=== PATIENT | male | born 1945 | race Caucasian/White ===

== ENCOUNTER 2019-05-08 14:19 | Outpatient (CLI) | payer MEDICARE, OTHER, SELFPAY ==
[2019-05-08 15:02] LABS: Blood Urea Nitrogen 20 mg/dL (9-20); Calcium 9.5 mg/dL (8.4-10.2); Carbon Dioxide 27 mmol/L (22-30); Chloride 103 mmol/L (98-107); Estimated Glomerular Filt Rate > 60; Glucose 95 mg/dL (75-110); Potassium 4.5 mmol/L (3.4-5.0); Sodium 137 mmol/L (137-145)
== END 2019-05-08 14:20 | disposition home or self-care (01) ==
PROVIDERS: Visit Provider Internal Medicine Cardiovascular Disease
DX: I10 Essential (primary) hypertension (principal)
CPT/HCPCS: 36415; 80048

== ENCOUNTER 2020-03-20 15:37 | Outpatient (CLI) | payer MEDICARE, OTHER, SELFPAY ==
--- NOTE | ~2020-03-20 | US_ITS ---
EXAMINATION: US carotid duplex BI DATE: 03/20/2020 16:23 INDICATION: Carotid bruit TECHNIQUE: Grayscale, color Doppler, and pulsed Doppler images of the cervical carotid arteries were obtained. The degree of vessel stenosis is placed in one of the following categories: normal, <50%, 5 0-69%, >=70% but less than near-occlusion, near-occlusion, or total occlusion. Note that percent sten osis relative to normal distal artery lumen diameter is indirectly measured from velocity measurement s as described by Jm, et al. Radiology 2003; [id number]. Notes: Normal: Peak systolic velocity <125 centimeters/sec and no plaque <50%. Peak systolic velocity <125 ( EDV <40; ICA/CCA PSV ratio <2.0; used these factors only a tandem lesions or low cardiac output or co ntralateral disease) 50-69 %: PSV 125-230 (EDV 40-100; ratio 2-4) >= 70% but less than near occlusion: PSV greater than 230 (EDV > 100; ratio> 4.0) Near Occlusion: PSV that is variable; markedly narrowed lumen Occlusion: Absent flow on color/spectral Doppler and no lumen on hernandez scale. COMPARISON: None. FINDINGS: RIGHT: The right common carotid artery (CCA) peak systolic velocity (PSV) is 95 cm/s. The right internal car otid artery (ICA) PSV is 195 cm/s. The right ICA end-diastolic velocity (EDV) is 51 cm/s. The right I CA/CCA PSV ratio is 2.1. The external carotid artery (ECA) PSV is 102 cm/s. There is antegrade flow i n the right vertebral artery. LEFT: The left CCA PSV is 73 cm/s. The left ICA PSV is 189 cm/s. The left ICA EDV is 47 cm/s. The left ICA/ CCA PSV ratio is 2.6. The ECA PSV is 108 cm/s. There is antegrade flow in the left vertebral artery. IMPRESSION: 1. 50-69% stenosis in the right internal carotid artery by sonographic criteria. 2. 50-69% stenosis in the left internal carotid artery by sonographic criteria. Reviewed, dictated and finalized at location A. CHANGER IMPRESSION: 1. 50-69% stenosis in the right internal carotid artery by sonographic criteria . 2. 50-69% stenosis in the left internal carotid artery by sonographic criteria.
== END 2020-03-20 15:38 | disposition home or self-care (01) ==
PROVIDERS: Visit Provider Internal Medicine Cardiovascular Disease
DX: R09.89 Other specified symptoms and signs involving the circulatory and respiratory systems (principal); I65.23 Occlusion and stenosis of bilateral carotid arteries
CPT/HCPCS: 93880

== ENCOUNTER 2020-06-05 15:25 | Outpatient (CLI) | payer MEDICARE, OTHER, SELFPAY ==
[2020-06-05 17:18] LABS: IFOB Positive Control Positive; Immunochemical Fecal Occult Bl Negative (N)
== END 2020-06-05 15:26 | disposition home or self-care (01) ==
LOC: ANHLAB 15:29
PROVIDERS: Visit Provider Internal Medicine Gastroenterology
DX: R19.7 Diarrhea, unspecified (principal); R10.84 Generalized abdominal pain
CPT/HCPCS: 36415; 82274; 87045; 87046; 87177; 87209; 87427; 89055

== ENCOUNTER 2020-09-30 16:33 | Emergency (ER) | payer MEDICARE, OTHER, SELFPAY ==
[2020-09-30 17:01] VITALS: BP 169/93; PULSE 76; RESP 16; TEMP 37.1; O2SAT 98
[2020-09-30 17:13] LABS: Basophils Percent Auto 0.7 % (0.2-1.2); Eosinophils Absolute Auto 0.4 K/mm3 (0-0.3); Eosinophils Percent Auto 6.6 % (0-4.4); Hematocrit 40.9 % (42.0-52.0); Hemoglobin 14.1 g/dL (14.0-18.0); Immature Granulocyte Absolute 0.01 K/mm3 (0.00-0.031); Immature Granulocyte Percent A 0.2 % (0-0.5); Lymphocytes Percent Auto 33.1 % (18.3-44.2); Mean Corpuscular HGB Conc 34.5 g/dl (32-36); Mean Corpuscular Hemoglobin 32.7 pg (26-34); Mean Corpuscular Volume 94.9 fl (80-100); Mean Platelet Volume 9.2 fl (7.4-10.4); Monocytes Absolute Auto 0.5 K/mm3 (0.1-0.6); Monocytes Percent Auto 9.6 % (2.6-8.5); Neutrophils Absolute Auto 2.7 K/mm3 (1.3-6.7); Neutrophils Percent Auto 49.8 % (45.5-73.1); Platelet Count Result 236 k/mm3 (150-375); Red Blood Count 4.31 M/mm3 (4.6-6.20); Red Cell Distribution Width 12.9 % (11.5-14.5); White Blood Count 5.4 K/mm3 (4.5-10.0)
[2020-09-30 17:18] VITALS: BP 151/72; PULSE 65; RESP 16; O2SAT 96
--- NOTE | 2020-09-30 17:36 | ED.GENADULT ---
HPI - General Adult General Chief complaint: Recheck/Abnormal Lab/Rx <Luis Alfredo Garza PA-C - Last Filed: 09/30/20 18:43> Stated complaint: High blood pressure <Luis Alfredo Garza PA-C - Last Filed: 09/30/20 18:43> Time Seen by Provider: 09/30/20 16:38 <Luis Alfredo Garza PA-C - Last Filed: 09/30/20 18:43> Source: patient, family and RN notes reviewed <Luis Alfredo Garza PA-C - Last Filed: 09/30/20 18:43> Mode of arrival: ambulatory <Luis Alfredo Garza PA-C - Last Filed: 09/30/20 18:43> Limitations: no limitations <Luis Alfredo Garza PA-C - Last Filed: 09/30/20 18:43> History of Present Illness HPI narrative: Patient is 75-year-old male who presents for evaluation of hypertension had elevated readings at home today patient is asymptomatic has no complaints has history of hypertension has been compliant with his medications and again is asymptomatic <Luis Alfredo Garza PA-C - Last Filed: 09/30/20 18:43> Related Data Allergies/adverse reactions: Allergies Allergy/AdvReac Type Severity Reaction Status Date / Time No Known Allergies Allergy Unverified 09/03/18 09:56 <Luis Alfredo Garza PA-C - Last Filed: 09/30/20 18:43> Review of Systems Review of Systems: All systems reviewed & are unremarkable except as noted in HPI and below <Luis Alfredo Garza PA-C - Last Filed: 09/30/20 18:43> PMFSH Past Medical History Medical History: Medical History Hypertension <Luis Alfredo Garza PA-C - Last Filed: 09/30/20 18:43> Social History Social History: Social History (Updated 09/30/20 @ 17:37 by Luis Alfredo Garza PA-C) Smoking status: Never smoker <Luis Alfredo Garza PA-C - Last Filed: 09/30/20 18:43> Exam Narrative: Exam Narrative: GENERAL: Well-appearing, well-nourished, and in no acute distress. HEAD: Normocephalic, atraumatic. EYES: PERRLA and EOMI. ENT: Nares clear, no rhinorrhea or epistaxis. Mucous membranes moist. CHEST: Clear to auscultation. No respiratory distress. No wheezes rales or rhonchi HEART: Regular rate and rhythm. No murmur heard. EXTREMITIES: Normal range of motion. No edema. SKIN: Warm, dry, no rash. NEURO: No focal deficits. Alert and oriented x3. PSYCH: Normal mood and affect. <Luis Alfredo Garza PA-C - Last Filed: 09/30/20 18:43> Course Course Emergency Course: Patient presented with asymptomatic hypertension slightly elevated blood pressures again asymptomatic will be discharged with outpatient follow-up advised to follow with primary care is nontoxic-appearing no distress and felt appropriate for outpatient reevaluation no high risk changes in the blood work <Luis Alfredo Garza PA-C - Last Filed: 09/30/20 18:43> Vital Signs Vital signs: Vital Signs Temperature 98.7 F 09/30/20 17:01 Pulse Rate 76 09/30/20 17:01 Respiratory Rate 16 09/30/20 17:01 Blood Pressure 169/93 H 09/30/20 17:01 Pulse Oximetry 98 09/30/20 17:01 Temperature 98.7 F 09/30/20 17:01 Pulse Rate 65 09/30/20 18:52 Respiratory Rate 12 09/30/20 18:52 Blood Pressure 170/87 H 09/30/20 18:52 Pulse Oximetry 99 09/30/20 18:52 <Luis Alfredo Garza PA-C - Last Filed: 09/30/20 18:43> Vital Signs Temperature 98.7 F 09/30/20 17:01 Pulse Rate 76 09/30/20 17:01 Respiratory Rate 16 09/30/20 17:01 Blood Pressure 169/93 H 09/30/20 17:01 Pulse Oximetry 98 09/30/20 17:01 Temperature 98.7 F 09/30/20 17:01 Pulse Rate 65 09/30/20 18:52 Respiratory Rate 12 09/30/20 18:52 Blood Pressure 170/87 H 09/30/20 18:52 Pulse Oximetry 99 09/30/20 18:52 <Sirena Nuno MD - Last Filed: 09/30/20 20:20> Medical Decision Making MDM Narrative Medical decision making narrative: Patient presented noting hypertension on arrival is in the room in no distress resting comfortably is compliant with his medications and felt appropriate for outpatient reeval
[2020-09-30 18:02] LABS: Alanine Aminotransferase 29 U/L (4-50); Albumin Level 4.2 g/dL (3.5-5.1); Alkaline Phosphatase 55 U/L (38-126); Anion Gap 7 mmol/L (8-16); Aspartate Amino Transferase 35 U/L (17-59); Bilirubin,Total 0.5 mg/dL (0.2-1.3); Blood Urea Nitrogen 17 mg/dL (9-20); Calcium 9.5 mg/dL (8.4-10.2); Carbon Dioxide 25 mmol/L (22-30); Chloride 109 mmol/L (98-107); Estimated CRCL calculation 57 ml/min; Estimated Glomerular Filt Rate > 60; Glucose 101 mg/dL (75-110); Potassium 3.7 mmol/L (3.4-5.0); Sodium 141 mmol/L (137-145)
[2020-09-30 18:14] VITALS: BP 169/79; PULSE 69; RESP 13; O2SAT 98
[2020-09-30 18:52] VITALS: BP 170/87; PULSE 65; RESP 12; O2SAT 99
== END 2020-09-30 18:54 | disposition home or self-care (01) ==
PROVIDERS: Emergency Medicine Emergency Medical Services; Emergency Provider General Practice; PCP Physician Assistant
DX: I10 Essential (primary) hypertension (principal)
CPT/HCPCS: 36415; 80053; 85025; 99283

== ENCOUNTER 2021-04-23 15:27 | Outpatient (CLI) | payer MEDICARE, OTHER, SELFPAY ==
--- NOTE | ~2021-04-23 | MR_ITS ---
EXAMINATION: MR hip LT wo con DATE: 04/23/2021 17:22 INDICATION: Chronic left hip pain TECHNIQUE: Magnetic resonance imaging (MRI) of the left hip was performed without intravenous contra st. Sequences included full-field axial PD-weighted FS FSE and T1-weighted FSE, coronal of the pelvis with PD-weighted FS FSE, small field of view of the left hip with axial PD-weighted FS FSE, sagitta l PD-weighted FS FSE and coronal PD weighted FS FSE. Additional radial T1-weighted FGR oriented ortho gonal to the acetabular rim were obtained for evaluation of the labrum. COMPARISON: None FINDINGS: Bones/labrum/cartilage: Alignment is normal. There is somewhat serpiginous low signal intensity boundary to a large region of likely osteonecrosis underlying the majority of the articular cortex of the left femoral head. There is loss of T1 fat signal underlying the cephalad aspect of the femoral head which appears slightly f lattened. Along the margins of this region of decreased T1 signal are multiple prominent subarticular cysts. There is partial thickness cartilage loss with mild to moderate nonuniform joint space narrow ing at the posterior and anterosuperior aspect of the joint space. Small marginal osteophytes about t he femoral head. Linear tear at the superolateral left acetabular labrum with more irregular degenera tive tearing with thickened macerated appearance of the posterior superior to posterior left acetabul ar labrum. Remaining marrow signal with no fracture or pathologic marrow replacing process. Moderate lower lumbar facet osteoarthritis. Fluid: Symmetric physiologic amount of fluid within both hip joints. Soft tissues: Normal and symmetric muscle bulk and signal in the pelvis and visualized proximal thighs. The iliopso as, gluteal and proximal hamstring tendons are normal. Limited evaluation of visceral organs of the p melissa is unremarkable. No pathologically enlarged pelvic/inguinal lymphadenopathy. IMPRESSION: 1. 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 2. Moderate secondary left hip osteoarthritis with prominent subarticular cystic change about the fem oral head. 3. Tearing of the left acetabular labrum. Reviewed, dictated and finalized at location A. IX ENGINEER IMPRESSION: 1. Extensive osteonecrosis at the left femoral head with subtle flattening of p ortion of the apex of the femoral head consistent with secondary collapse. 2. Moderate secondary left hip osteoarthritis with prominent subarticular cysti c change about the femoral head. 3. Tearing of the left acetabular labrum.
== END 2021-04-23 15:28 | disposition home or self-care (01) ==
PROVIDERS: PCP Physician Assistant
DX: M25.552 Pain in left hip (principal); G89.29 Other chronic pain; M87.052 Idiopathic aseptic necrosis of left femur; M16.12 Unilateral primary osteoarthritis, left hip; S73.192A Other sprain of left hip, initial encounter
CPT/HCPCS: 73721

== ENCOUNTER 2021-10-09 14:24 | Outpatient (CLI) | payer MEDICARE, OTHER, SELFPAY ==
--- NOTE | ~2021-10-09 | US_ITS ---
EXAMINATION: US carotid duplex BI DATE: 10/09/2021 15:00 INDICATION: Carotid stenosis TECHNIQUE: Grayscale, color Doppler, and pulsed Doppler images of the cervical carotid arteries were obtained. The degree of vessel stenosis is placed in one of the following categories: normal, <50%, 5 0-69%, >=70% but less than near-occlusion, near-occlusion, or total occlusion. Note that percent sten osis relative to normal distal artery lumen diameter is indirectly measured from velocity measurement s as described by Jm, et al. Radiology 2003; [id number]. Notes: Normal: Peak systolic velocity <125 centimeters/sec and no plaque <50%. Peak systolic velocity <125 ( EDV <40; ICA/CCA PSV ratio <2.0; used these factors only a tandem lesions or low cardiac output or co ntralateral disease) 50-69 %: PSV 125-230 (EDV 40-100; ratio 2-4) >= 70% but less than near occlusion: PSV greater than 230 (EDV > 100; ratio> 4.0) Near Occlusion: PSV that is variable; markedly narrowed lumen Occlusion: Absent flow on color/spectral Doppler and no lumen on hernandez scale. COMPARISON: Ultrasound dated 03/20/2020. FINDINGS: RIGHT: The right common carotid artery (CCA) peak systolic velocity (PSV) is 105 cm/s. The right internal ca rotid artery (ICA) PSV is 280 cm/s. The right ICA end-diastolic velocity (EDV) is 81 cm/s. The right ICA/CCA PSV ratio is 2.7. The external carotid artery (ECA) PSV is 129 cm/s. There is antegrade flow in the right vertebral artery. LEFT: The left CCA PSV is 64 cm/s. The left ICA PSV is 312 cm/s. The left ICA EDV is 93 cm/s. The left ICA/ CCA PSV ratio is 4.9. The ECA PSV is 137 cm/s. There is antegrade flow in the left vertebral artery. IMPRESSION: 1. Greater than or equal to 70% stenosis in the right internal carotid artery by sonographic criteria . 2. Greater than or equal to 70% stenosis in the left internal carotid artery by sonographic criteria. Reviewed, dictated and finalized at location A. IMPRESSION: 1. Greater than or equal to 70% stenosis in the right internal carotid artery b y sonographic criteria. 2. Greater than or equal to 70% stenosis in the left internal carotid artery by sonographic criteria.
== END 2021-10-09 14:25 | disposition home or self-care (01) ==
PROVIDERS: PCP Physician Assistant; Visit Provider Internal Medicine Cardiovascular Disease
DX: I65.23 Occlusion and stenosis of bilateral carotid arteries (principal)
CPT/HCPCS: 93880

== ENCOUNTER 2021-10-27 20:16 | Emergency (ER) | payer MEDICARE, OTHER, SELFPAY ==
[2021-10-27] VITALS (12 sets, daily range): BP systolic 168–200; BP diastolic 84–145; PULSE 60–73; RESP 18; TEMP 36.3; O2SAT 92–100
--- NOTE | ~2021-10-27 | CT_ITS ---
EXAMINATION: CT brain wo con DATE: 10/27/2021 22:18 INDICATION: acute headache, hypertension . TECHNIQUE: Computed tomography (CT) of the head was performed without intravenous contrast. The mA wa s adjusted according to patient size. Iterative reconstruction technique was employed. The dose-lengt h product was 605.33 mGy-cm. COMPARISON: 10/03/2017. FINDINGS: No acute intracranial hemorrhage or extra-axial fluid collection. No hydrocephalus, mass, or herniation. No acute ischemic infarct. Unremarkable dural venous sinus attenuation. No acute osseous abnormality. Retention cyst or polyp in the left frontal sinus extending into the left anterior ethmoid air cells. Aerated secretion/debris in the posterior left ethmoid air cells. Prior sinus surgery. Bilateral max illary sinus wall thickening. The remaining aerated spaces are clear. Atherosclerotic intracranial calcification. Bilateral lens replacements. IMPRESSION: No acute intracranial process. Reviewed, dictated and finalized at location K.
--- NOTE | 2021-10-27 21:22 | ECG_ITS ---
Measurements Intervals [place] Rate: 62 P: -8 [place]: 169 QRS: -37 QRSD: 134 T: 9 QT: 433 QTc: 441 Interpretive Statements SINUS RHYTHM WITH SINUS ARRHYTHMIA LEFT AXIS DEVIATION RIGHT BUNDLE BRANCH BLOCK HIGH LATERAL INFARCT, AGE INDETERMINATE BASELINE ARTIFACT- I, II, III, AVR ABNORMAL ECG Electronically Signed On 10-28-2021 6:42:49 CDT by Rocco Oliveira D.O.
[2021-10-27] MEDS: NAPROXEN 500 MG TABLET PO (21:41)
[2021-10-27 21:44] LABS: Basophils Percent Auto 0.6 % (0.2-1.2); Eosinophils Absolute Auto 0.4 K/mm3 (0-0.3); Eosinophils Percent Auto 6.7 % (0-4.4); Hematocrit 43.4 % (42.0-52.0); Immature Granulocyte Absolute 0.02 K/mm3 (0.00-0.031); Immature Granulocyte Percent A 0.3 % (0-0.5); Lymphocytes Absolute Auto 1.67 K/mm3 (0.9-3.2); Lymphocytes Percent Auto 25.4 % (18.3-44.2); Mean Corpuscular HGB Conc 34.6 g/dl (32-36); Mean Corpuscular Hemoglobin 32.7 pg (26-34); Mean Corpuscular Volume 94.6 fl (80-100); Mean Platelet Volume 9.1 fl (7.4-10.4); Monocytes Absolute Auto 0.6 K/mm3 (0.1-0.6); Monocytes Percent Auto 8.7 % (2.6-8.5); Neutrophils Absolute Auto 3.8 K/mm3 (1.3-6.7); Neutrophils Percent Auto 58.3 % (45.5-73.1); Platelet Count Result 232 k/mm3 (150-375); Red Blood Count 4.59 M/mm3 (4.6-6.20); Red Cell Distribution Width 12.7 % (11.5-14.5); White Blood Count 6.6 K/mm3 (4.5-10.0)
[2021-10-27 21:55] LABS: Alanine Aminotransferase 29 U/L (6-50); Albumin Level 4.7 g/dL (3.5-5.1); Alkaline Phosphatase 60 U/L (38-126); Anion Gap 10 mmol/L (8-16); Aspartate Amino Transferase 31 U/L (17-59); Bilirubin,Total 0.4 mg/dL (0.2-1.3); Blood Urea Nitrogen 26 mg/dL (9-20); Calcium 9.6 mg/dL (8.4-10.2); Carbon Dioxide 26 mmol/L (22-30); Chloride 105 mmol/L (98-107); Estimated CRCL calculation 56 ml/min; Estimated Glomerular Filt Rate > 60; Glucose 124 mg/dL (65-110); Potassium 4.4 mmol/L (3.4-5.0); Sodium 141 mmol/L (137-145)
[2021-10-27 22:22] LABS: Appearance Urine Clear (Clear); Bilirubin Urine Negative (Negative); Blood Urine Negative (Negative); Color Urine Yellow (Yellow); Glucose Urine UA Negative (Negative); Ketones Urine Negative (Negative); Leukocyte Esterase Ur Negative LEU/UL (Negative); Nitrate Urine Negative (Negative); Protein Urine Negative (Negative); Specific Grav Ur 1.015 (1.001-1.035); Urobilinogen Urine 0.2 mg/dL (<2.0)
[2021-10-27 22:23] LABS: Add Urine Microscopic? NO
--- NOTE | 2021-10-27 23:56 | ED.RECABL ---
HPI - Recheck/Abnormal Lab/Rx General Chief Complaint: Recheck/Abnormal Lab/Rx Stated Complaint: high bp, headache Time Seen by Provider: 10/27/21 20:45 Source: patient, RN notes reviewed and old records reviewed Mode of arrival: ambulatory Limitations: no limitations History of Present Illness HPI narrative: This is a 76 year old male who presents for evaluation of elevated blood pressure. Patient states he has noticed that his blood pressure has been increasingly elevated over the past 3 days. Today his blood pressure was 200s/100s. He has history of hypertension and he has been taking his medication as prescribed. He takes lisinopril 10 mg BID and metoprolol 25 mg BID. He denies chest pain, dizziness or shortness of breath. He reports his blood pressure normally controlled at 130s /70s. Over the past 4 days he has been having worsening left hip pain . He had left hip replacement in July and he states that he had xray already to assess his pain. He denies any fall. He has appointment with his orthopedic surgeon . He states his thought his blood pressure was elevated due to pain. Patient also reports frontal headache that has been present since this morning. He denies blurred vision, nausea or vomiting. Related Data Home Medications Medication Instructions Recorded Confirmed aspirin 81 mg tablet 81 mg PO 1XD 10/27/21 10/27/21 isosorbide mononitrate 30 mg 30 mg PO 1XD 10/27/21 10/27/21 tablet,extended release 24 hr levothyroxine 50 mcg tablet 50 mcg 1XD 10/27/21 10/27/21 lisinopril 10 mg tablet 10 mg PO BID 10/27/21 10/27/21 mesalamine 400 mg capsule,delayed 400 mg PO 3XD 10/27/21 10/27/21 release metoprolol tartrate 25 mg tablet 25 mg 2XD 10/27/21 10/27/21 nitroglycerin 0.4 mg sublingual 0.4 mg PRN Chest Pain 10/27/21 tablet (Nitrostat) pantoprazole 40 mg tablet,delayed 40 mg PO 1XD 10/27/21 10/27/21 release rosuvastatin 10 mg tablet 10 mg 1XD 10/27/21 10/27/21 Allergies Allergy/AdvReac Type Severity Reaction Status Date / Time latex Allergy Itching Verified 10/27/21 20:42 Review of Systems Review of Systems: All systems reviewed & are unremarkable except as noted in HPI and below Eyes: Eyes: Denies change in vision Cardiovascular: Cardiovascular: Denies chest pain and Denies radiating jaw, neck or arm pain Respiratory: Respiratory: Denies chest congestion Gastrointestinal: Gastrointestinal: Denies nausea and Denies vomiting Neurologic: Denies dizziness, Denies syncope and Reports headache(s) PMFSH Past Medical History Medical History (Updated 10/28/21 @ 00:19 by Sirena Nuno MD) Hyperlipidemia Hypertension Hypothyroidism Surgical History Surgical History (Updated 10/28/21 @ 00:20 by Sirena Nuno MD) History of left hip replacement Social History Social History (Updated 09/30/20 @ 17:37 by Luis Alfredo Garza, PAChristiane) Smoking status: Never smoker Exam Const: General: healthy appearing, no acute distress and alert Nutritional Appearance: well nourished Orientation/consciousness: patient oriented x3 HENMT: Head: normal to inspection Face and sinus: normal facial exam Eyes: Pupils: Equal, round and reactive pupils present EOM: EOMs intact bilaterally Chest: Chest palpation & inspection: normal inspection of the chest Resp: Effort & Inspection: normal respiratory effort Auscultation: clear to auscultation bilaterally Cardio: Rate: regular rate Rhythm: regular rhythm Heart sounds: no murmurs GI: GI Palp: Yes Soft to palpation, No Tenderness to palpation present (GI) and No Guarding due to palpation present (GI) Auscultation: normal bowel sounds Skin: General skin exam: normal color Rashes: no rashes Wounds: no wounds Neuro: General: patient oriented x3, moves all extremities and CN's II-XI intact bilaterally Psych: Mental Status: mental status grossly normal Affect: normal affect Attitude: cooperative Course Reevaluation(s)
[2021-10-28 00:32] VITALS: BP 160/79; PULSE 72; RESP 18; O2SAT 98
== END 2021-10-28 00:34 | disposition home or self-care (01) ==
PROVIDERS: Emergency Provider General Practice; PCP Physician Assistant
DX: I10 Essential (primary) hypertension (principal); R51.9 Headache, unspecified; E03.9 Hypothyroidism, unspecified; E78.5 Hyperlipidemia, unspecified; Z79.82 Long term (current) use of aspirin; Z96.642 Presence of left artificial hip joint; I45.10 Unspecified right bundle-branch block; R94.31 Abnormal electrocardiogram [ECG] [EKG]
CPT/HCPCS: 36415; 70450; 80053; 81003; 85025; 93005; 99284; A9270

== ENCOUNTER → 2021-12-15 13:36 | Outpatient (CLI) | payer MEDICARE, OTHER, SELFPAY ==
--- NOTE | ~2021-12-15 | MR_ITS ---
EXAMINATION: MR lumbar spine wo con DATE: 12/15/2021 14:10 INDICATION: Lumbar radiculopathy. TECHNIQUE: Magnetic resonance imaging (MRI) of the lumbar spine was performed without intravenous con trast. Sequences included sagittal T2-weighted FSE, sagittal T2-weighted FS FSE, sagittal T1-weighted FSE, and axial T2-weighted FSE. COMPARISON: None FINDINGS: There is 4 degrees levocurvature of lumbar spine. Vertebral body heights and intervertebral disc heights are normal. The distal spinal cord signal intensity is normal. The conus medullaris is at L2. The following disc levels are specifically discussed: L1-L2: The disc does not extend beyond the endplate margin. There is mild bilateral facet joint osteo arthritis. There is no neural foraminal stenosis. There is no central canal stenosis. L2-L3: The disc does not extend beyond the endplate margin. There is severe right and mild left facet joint osteoarthritis. There is no neural foraminal stenosis. There is no central canal stenosis. L3-L4: The disc is bulging. There is severe bilateral facet joint osteoarthritis. There is mild bilat eral neural foraminal stenosis. There is no central canal stenosis. L4-L5: The disc is bulging. There is severe bilateral facet joint osteoarthritis. There is mild bilat eral neural foraminal stenosis. There is no central canal stenosis. L5-S1: The disc does not extend beyond the endplate margin. There is severe bilateral facet joint ost eoarthritis. There is mild left neural foraminal stenosis. There is no central canal stenosis. IMPRESSION: 1. Mild lumbar spondylosis. Reviewed, dictated and finalized at location A. IMPRESSION: 1. Mild lumbar spondylosis.
== END ==
PROVIDERS: PCP Physician Assistant; Visit Provider Physician Assistant
DX: M47.26 Other spondylosis with radiculopathy, lumbar region (principal)
CPT/HCPCS: 72148

== ENCOUNTER 2022-10-31 23:13 | Inpatient (IN) | payer MEDICARE, OTHER, SELFPAY ==
--- NOTE | ~2022-10-31 | XR_ITS ---
AP view of the pelvis and AP and lateral views of the left hip Clinical history: Pain Findings: No acute fracture or dislocation is seen. Left hip arthroplasties in place. No hardware com plication is evident. Soft tissues are unremarkable. Impression: No acute abnormality seen. Left hip arthroplasty in place. Reviewed, dictated and finalized at location . Impression: No acute abnormality seen. Left hip arthroplasty in place.
--- NOTE | ~2022-10-31 | CT_ITS ---
Non-contrast Head CT History: Syncope COMPARISON: 10/27/2021 Technique: Axial non-contrast imaging of the brain was performed. Dose reduction technique was used on this scan by utilizing automated exposure control and iterative reconstruction technique. The dose -length product (DLP) was 681.00 mGy-cm. Findings: There is no evidence of intracranial hemorrhage, mass lesion, or acute infarct. Brain par enchyma appears normal. The ventricles and subarachnoid spaces are normal in size. The calvarium ap pears normal. The visualized paranasal sinuses and mastoid air cells are clear. Impression: No significant abnormality seen. Reviewed, dictated and finalized at location . Impression: No significant abnormality seen.
--- NOTE | ~2022-10-31 | CT_ITS ---
CT ANGIOGRAM NECK AND HEAD History: Status post fall, syncope, carotid stenosis. Technique: Serial spiral axial images through the head and neck were obtained during arterial phase I V injection of 100 cc of Omnipaque 350. 3-D postprocessing and MIP images were then reconstructed on the remote workstation. Dose reduction technique was used on this scan by utilizing automated exposur e control and iterative reconstruction technique. The dose-length product (DLP) was 1222.66 mGy-cm. CTA neck findings: Bilateral vertebral arteries are patent. Bilateral common carotid, internal carot id, and external carotid arteries are patent. There is soft plaque or mural thrombus at the origin of the left internal carotid artery, without stenosis. There is low-grade, possibly 30 % stenosis at th e proximal right internal carotid artery The proximal right internal carotid artery demonstrates 30% stenosis relative to the normal distal artery lumen diameter. The proximal left internal carotid gagandeep ry demonstrates 0% stenosis relative to the normal distal artery lumen diameter. 4 mm right upper lobe pulmonary nodule noted. CTA head findings: Distal vertebral arteries, basilar artery, and posterior cerebral arteries are pat ent. Distal internal carotid arteries, middle cerebral arteries, and anterior cerebral arteries are p atent. No large vessel occlusion. No stenosis or aneurysm. Impression: Low-grade, 30% stenosis at the proximal right internal carotid artery. No other significant vascular abnormality. 4 mm right upper lobe pulmonary nodule. According to Fleischner Society criteria, no further follow-u p required for a low-risk patient. For a high-risk patient, consider 12 month follow-up CT. Reviewed, dictated and finalized at location . Impression: Low-grade, 30% stenosis at the proximal right internal carotid artery. No other significant vascular abnormality. 4 mm right upper lobe pulmonary nodule. According to Fleischner Society criteri a, no further follow-up required for a low-risk patient. For a high-risk patien t, consider 12 month follow-up CT.
--- NOTE | ~2022-10-31 | XR_ITS ---
Right Shoulder Technique: AP and scapular Y views were obtained. Clinical History: Pain Findings: No fracture or dislocation is seen. Osseous alignment is anatomic. The glenohumeral and acr omioclavicular joint spaces are preserved. Soft tissues are unremarkable. Impression: Unremarkable right shoulder radiographs. Reviewed, dictated and finalized at [facility]. Impression: Unremarkable right shoulder radiographs.
--- NOTE | ~2022-10-31 | CT_ITS ---
Noncontrast CT scan of the cervical spine Technique: Multiple contiguous axial [address] images of the cervical spine were obtained and rec onstructed in 2D sagittal and coronal planes on the acquisition scanner. Dose reduction technique was used on this scan by utilizing automated exposure control, adjustment of the mA and/or kV according to patient size. The dose-length product (DLP) was 498.74 mGy-cm. Clinical History: Pain Findings: No fractures or dislocations. Intervertebral disc spaces are relatively well preserved thr oughout the cervical spine. There is mild facet arthropathy bilaterally at C2-C3. There is left neura l foraminal narrowing at C3-C4 with left facet arthropathy. There is probable bilateral neural forami nal narrowing at C4-C5, with bilateral facet arthropathy, left worse than right. There is probable bi lateral neural foraminal narrowing, right worse than left, at C5-C6, related to bilateral facet arthr opathy. No prevertebral soft tissue swelling. Impression: No fracture or subluxation of the cervical spine. Mild degenerative change, as above. Reviewed, dictated and finalized at [facility]. Impression: No fracture or subluxation of the cervical spine. Mild degenerative change, as above.
--- NOTE | ~2022-10-31 | XR_ITS ---
Clinical Indication: Syncope AP and lateral views of the chest: Comparison: 06/26/2018 Findings: The lungs are clear, without evidence of focal consolidation or pleural effusion. Cardiome diastinal silhouette is stable. Bones and soft tissues are unremarkable. Impression: Clear lungs. Reviewed, dictated and finalized at location . Impression: Clear lungs.
[2022-10-31 23:16] VITALS: PULSE 65; RESP 14
[2022-10-31 23:18] VITALS: BP 157/73; PULSE 62; RESP 17; O2SAT 95
--- NOTE | 2022-10-31 23:22 | ECG_ITS ---
Measurements Intervals [place] Rate: 62 P: [place]: 0 QRS: -28 QRSD: 130 T: 5 QT: 398 QTc: 406 Interpretive Statements SINUS RYTHM WITH MARKED SINUS ARRHYTHMIA RIGHT BUNDLE BRANCH BLOCK LEFT VENTRICULAR HYPERTROPHY HIGH LATERAL INFARCT, AGE INDETERMINATE BASELINE ARTIFACT- I, II, AVR ABNORMAL ECG COMPARED TO ECG 10/27/2021 21:36:39 NO SIGNIFICANT CHANGES Electronically Signed On 11-01-2022 0:19:31 CDT by Rocco Oliveira D.O.
[2022-10-31 23:27] VITALS: BP 157/73; PULSE 67; RESP 18; TEMP 36.4; O2SAT 98
--- NOTE | 2022-10-31 23:29 | ED.GENADULT ---
HPI - General Adult General Chief complaint: Syncope Stated complaint: SYNCOPAL EPISODE Source: patient Mode of arrival: EMS Limitations: no limitations History of Present Illness HPI narrative: This is a 77-year-old male with PMH of HLD, HTN, carotid stenosis who presents to the ER via EMS for chief complaint of syncopal episode occurring just prior to arrival. Patient states that he was doing his normal nightly routine, and when he went to walk up the stairs he syncopized. Reports preceding lightheadedness. He states he remembers waking up and his called EMS. He reports that he had his normal 3 EtOH drinks that he has most nights. He states he is concerned because his blood pressure has been up-and-down over the last few days. Reports it has been the 80s/60s on occasion and this usually brings on the lightheadedness. Denies any preceding chest pain or shortness of breath. Denies fevers, chills, abdominal pain, urinary symptoms, cough. Denies any GI bleeding symptoms. He reports he is only having pain in the right shoulder. Denies any other site of pain. Reports surgical history of left hip arthroplasty. Also reports history of left carotid endarterectomy. He states he now has somewhere in the 60% range of stenosis in the right carotid artery. Managed by Dr. Allred with [facility]. He states he sees Dr. Hodgson who manages his blood pressure medications. Denies any recent changes in his medications or new medications. Related Data Home Medications Medication Instructions Recorded Confirmed aspirin 81 mg tablet 81 mg PO 1XD 10/27/21 10/27/21 isosorbide mononitrate 30 mg 30 mg PO 1XD 10/27/21 10/27/21 tablet,extended release 24 hr levothyroxine 50 mcg tablet 50 mcg 1XD 10/27/21 10/27/21 lisinopril 10 mg tablet 10 mg PO BID 10/27/21 10/27/21 mesalamine 400 mg capsule,delayed 400 mg PO 3XD 10/27/21 10/27/21 release metoprolol tartrate 25 mg tablet 25 mg 2XD 10/27/21 10/27/21 nitroglycerin 0.4 mg sublingual 0.4 mg PRN Chest Pain 10/27/21 tablet (Nitrostat) pantoprazole 40 mg tablet,delayed 40 mg PO 1XD 10/27/21 10/27/21 release rosuvastatin 10 mg tablet 10 mg 1XD 10/27/21 10/27/21 Allergies Allergy/AdvReac Type Severity Reaction Status Date / Time latex Allergy Itching Verified 10/27/21 20:42 [facility] Past Medical History Medical History (Updated 11/01/22 @ 04:06 by Harsha Loza, PA-C) Hyperlipidemia Hypertension Hypothyroidism Surgical History Surgical History (Updated 10/28/21 @ 00:20 by Sirena Nuno MD) History of left hip replacement Social History Social History (Updated 09/30/20 @ 17:37 by Luis Alfredo Garza, PA-C) Smoking status: Never smoker Exam Narrative: GENERAL: Well-appearing, well-nourished, and in no acute distress. HEAD: Normocephalic, atraumatic. EYES: PERRLA and EOMI. ENT: Nares clear, no rhinorrhea or epistaxis. Mucous membranes moist. Oropharynx without tonsillar hypertrophy exudate or other lesions. NECK: Supple. No adenopathy or masses. CHEST: No respiratory distress. Clear to auscultation. No wheezes rales or rhonchi. HEART: Irregularly irregular. No murmur heard. Normal peripheral pulses. ABDOMEN: Soft, nontender, nondistended, normal active bowel sounds. MSK: Right upper extremity: Decreased range of motion due to pain. Mild tenderness to the posterior right shoulder. Neurovascular intact distally. Left upper extremity: Benign. No other area of tenderness or difficulty with range of motion throughout the musculoskeletal exam. Presents in c-collar. No midline spinal tenderness. SKIN: Warm, dry, no rash. NEURO: Alert and oriented x4. No focal deficits. Cranial nerves II through XII intact. 5 out of 5 strength and sensation in the upper and lower extremities. Speech intact. PSYCH: Normal mood and affect. Course Vital Signs Vital signs: Vital Signs Temperature 97.6 F 10/31/22 23:27 Pulse Rate 67 10/31/22 23:27 Respiratory Rate 18
[2022-10-31 23:30] VITALS: PULSE 62; RESP 16; O2SAT 97
[2022-10-31 23:31] VITALS: BP 151/76; PULSE 63; RESP 19; O2SAT 92
[2022-10-31 23:46] VITALS: BP 176/89
[2022-11-01] VITALS (57 sets, daily range): BP systolic 125–195; BP diastolic 59–112; PULSE 64–96; RESP 15–23; TEMP 36.4–36.9; O2SAT 93–98; BMI 26.5
[2022-11-01 01:10] LABS: Basophils Percent Auto 0.1 % (0.2-1.2); Eosinophils Percent Auto 0.1 % (0-4.4); Hematocrit 39.5 % (42.0-52.0); Hemoglobin 13.6 g/dL (14.0-18.0); Immature Granulocyte Absolute 0.07 K/mm3 (0.00-0.031); Lymphocytes Absolute Auto 0.78 K/mm3 (0.9-3.2); Lymphocytes Percent Auto 11.3 % (18.3-44.2); Mean Corpuscular HGB Conc 34.4 g/dl (32-36); Mean Corpuscular Hemoglobin 33.9 pg (26-34); Mean Corpuscular Volume 98.5 fl (80-100); Mean Platelet Volume 8.6 fl (7.4-10.4); Monocytes Absolute Auto 0.5 K/mm3 (0.1-0.6); Monocytes Percent Auto 7.1 % (2.6-8.5); Neutrophils Absolute Auto 5.5 K/mm3 (1.3-6.7); Neutrophils Percent Auto 80.4 % (45.5-73.1); Platelet Count Result 168 k/mm3 (150-375); Red Blood Count 4.01 M/mm3 (4.6-6.20); Red Cell Distribution Width 11.8 % (11.5-14.5); White Blood Count 6.9 K/mm3 (4.5-10.0)
[2022-11-01 01:14] LABS: Alanine Aminotransferase 85 U/L (6-50); Albumin Level 3.8 g/dL (3.5-5.1); Alkaline Phosphatase 46 U/L (38-126); Anion Gap 7 mmol/L (8-16); Aspartate Amino Transferase 111 U/L (17-59); Bilirubin,Total 0.5 mg/dL (0.2-1.3); Blood Urea Nitrogen 37 mg/dL (9-20); Calcium 8.8 mg/dL (8.4-10.2); Carbon Dioxide 19 mmol/L (22-30); Chloride 102 mmol/L (98-107); Estimated Glomerular Filt Rate 59; Glucose 117 mg/dL (65-110); Sodium 128 mmol/L (137-145)
[2022-11-01] MEDS: SODIUM CHLORIDE 0.9% IV 1,000 ML 999 ML IV CONT (02:21)
[2022-11-01 06:11] LABS: Ethanol 178 mg/dL (<10)
[2022-11-01] MEDS: SODIUM CHLORIDE 0.9% IV 1,000 ML 75 ML IV CONT ×2 (06:27→18:41)
--- NOTE | 2022-11-01 08:10 | PC.NURSE ---
This patient, Lalo Swan, was admitted to IMU Room 204-01. Patient/family oriented to hospital policies and general routines including ID bracelet, bed and alarms, visiting hours, pain management, procedures, bathroom and other care routines, personal items, smoking policy, room service/diet, and visiting hours. Information on how to activate the Rapid Response Team has been discussed. Patient/Family are encouraged to report perceived risks to care and to ask questions if they do not understand what they are told or what they should do.
[2022-11-01 08:51] LABS: Anion Gap 4 mmol/L (8-16); Blood Urea Nitrogen 29 mg/dL (9-20); Calcium 8.6 mg/dL (8.4-10.2); Carbon Dioxide 22 mmol/L (22-30); Chloride 103 mmol/L (98-107); Estimated CRCL calculation 56 ml/min; Estimated Glomerular Filt Rate > 60; Glucose 94 mg/dL (65-110); Potassium 4.8 mmol/L (3.4-5.0); Sodium 129 mmol/L (137-145)
[2022-11-01] MEDS: METOPROLOL TARTRATE 25 MG TABLET PO ×2 (10:13→20:56)
[2022-11-01] MEDS: IBUPROFEN 400 MG TABLET 800 MG PO (10:14)
[2022-11-01] MEDS: lisinopriL 10 MG TABLET PO (10:14)
--- NOTE | 2022-11-01 11:49 | PM.IMHP ---
H&P: HPI History of Present Illness Date/Time: 11/01/22 11:49 Chief Complaint: This is a 77-year-old male with PMH of HLD, HTN, carotid stenosis who presents to the ER via EMS for chief complaint of syncopal episode occurring just prior to arrival.? Patient states that he was doing his normal nightly routine, and when he went to walk up the stairs he syncopized.? Reports preceding lightheadedness.? He states he remembers waking up and his called EMS.? He reports that he had his normal 3 EtOH drinks that he has most nights.? He states he is concerned because his blood pressure has been up-and-down over the last few days. ? Reports it has been the 80s/60s on occasion and this usually brings on the lightheadedness.? Denies any preceding chest pain or shortness of breath.? Denies fevers, chills, abdominal pain, urinary symptoms, cough.? Denies any GI bleeding symptoms. He reports he is only having pain in the right shoulder.? Denies any other site of pain. Reports surgical history of left hip arthroplasty. Also reports history of left carotid endarterectomy.? He states he now has somewhere in the 60% range of stenosis in the right carotid artery.? Managed by Dr. Allred with [facility].? He states he sees Dr. Hodgson who manages his blood pressure medications.? Denies any recent changes in his medications or new medications. Review of Systems Review of Systems: 10 point review of systems negative [facility] Past Medical History Medical History Hyperlipidemia Hypertension Hypothyroidism Surgical History Surgical History History of left hip replacement Social History Social History Smoking status: Former smoker Alcohol intake: current Drinks per week: 7 Substance use: never Lack of Transportation: No Lack of Food: Never True Current Housing: I Have Housing Concerned About Future Housing: No Difficulty Paying Gas/Electric Bills: No Difficulty Paying for Meds: No Currently Unemployed: No Education: Decline to Answer Difficulty w/ Childcare or Family Care: No Spiritual care concerns: No Meds Home Medications and Allergies Home Medications Medication Instructions Recorded Confirmed Type aspirin 81 mg tablet 81 mg PO HS 10/27/21 11/01/22 History isosorbide mononitrate 30 mg 30 mg PO DAILY 10/27/21 11/01/22 History tablet,extended release 24 hr levothyroxine 50 mcg tablet 50 mcg PO DAILY 10/27/21 11/01/22 History lisinopril 10 mg tablet 10 mg PO BID 10/27/21 11/01/22 History mesalamine 400 mg capsule,delayed 800 mg PO TID 10/27/21 11/01/22 History release metoprolol tartrate 25 mg tablet 25 mg PO BID 10/27/21 11/01/22 History nitroglycerin 0.4 mg sublingual 0.4 mg sublingual Q5MIN PRN Chest 10/27/21 11/01/22 History tablet (Nitrostat) Pain pantoprazole 40 mg tablet,delayed 40 mg PO DAILY 10/27/21 11/01/22 History release rosuvastatin 10 mg tablet 10 mg PO QPM 10/27/21 11/01/22 History amoxicillin 875 mg tablet 875 mg PO Q12H 11/01/22 11/01/22 History ascorbic acid (vitamin C) 1,000 mg 1,000 mg PO DAILY 11/01/22 11/01/22 History tablet cholecalciferol (vitamin D3) 1,250 50,000 mcg PO WEEKLY 11/01/22 11/01/22 History mcg (50,000 unit) tablet coQ10 (ubiquinol) 200 mg capsule 200 mg PO DAILY 11/01/22 11/01/22 History magnesium citrate 100 mg tablet 200 mg PO DAILY 11/01/22 11/01/22 History milk thistle 140 mg capsule 140 mg PO DAILY 11/01/22 11/01/22 History turmeric root extract 500 mg tablet 1,000 mg PO BID 11/01/22 11/01/22 History Allergies Allergy/AdvReac Type Severity Reaction Status Date / Time latex Allergy Itching Verified 11/01/22 07:40 Vital Signs Vital Signs - 24 hr 10/31/22 23:27 10/31/22 23:16 10/31/22 23:18 Temperature 97.6 F Pulse Rate 67 65 62 Respiratory Rate 18 14 17 Blood Pressure
--- NOTE | 2022-11-01 12:13 | PC.NURSE ---
Pt reports he wishes to be a DNR. DNR meaning reviewed with pt. Dr. Ball made aware. Chart updated.
[2022-11-01 14:51] LABS: Appearance Urine Clear (Clear); Bilirubin Urine Negative (Negative); Blood Urine Negative (Negative); Color Urine Yellow (Yellow); Glucose Urine UA Negative (Negative); Ketones Urine Negative (Negative); Leukocyte Esterase Ur Negative LEU/UL (Negative); Nitrate Urine Negative (Negative); Protein Urine Negative (Negative); Specific Grav Ur 1.026 (1.001-1.035); Urobilinogen Urine 0.2 mg/dL (<2.0)
[2022-11-01] MEDS: AMOXICILLIN 500 MG CAPSULE PO ×2 (14:55→21:08)
[2022-11-01] MEDS: MESALAMINE 400 MG DELAYED RELEASE CAPSULE 800 MG PO (14:55)
[2022-11-01] MEDS: ISOSORBIDE MONONITRATE 30 MG TAB.ER.24H PO (14:56)
[2022-11-01] MEDS: ASCORBIC ACID 500 MG TABLET 1000 MG PO (14:56)
[2022-11-01] MEDS: PANTOPRAZOLE 40 MG TABLET PO (14:57)
[2022-11-01 15:03] LABS: Add Urine Microscopic? NO
[2022-11-01] MEDS: ROSUVASTATIN 10 MG TABLET PO (18:41)
[2022-11-01] MEDS: ASPIRIN 81 MG ENTERIC TABLET PO (20:56)
[2022-11-01] MEDS: IBUPROFEN 400 MG TABLET PO (20:56)
[2022-11-02] VITALS (7 sets, daily range): BP systolic 140–160; BP diastolic 62–82; PULSE 64–86; RESP 14–20; TEMP 36.4–36.7; O2SAT 97–99
--- NOTE | 2022-11-02 03:53 | PC.NURSE ---
sbar faxed to [address] [place] [address]. Verbal report called to Jumana EVANS. Patient transferred to Room 250 with all belongings. No change from previous assessment.
--- NOTE | 2022-11-02 04:11 | PC.NURSE ---
RECIEVED PT FROM IMU PER BED. VOICES NO C/O
[2022-11-02] MEDS: AMOXICILLIN 500 MG CAPSULE PO (06:19)
[2022-11-02] MEDS: LEVOTHYROXINE SODIUM 50 MCG TABLET PO (06:20)
[2022-11-02] MEDS: MESALAMINE 400 MG DELAYED RELEASE CAPSULE 800 MG PO (10:23)
[2022-11-02] MEDS: ASCORBIC ACID 500 MG TABLET 1000 MG PO (10:23)
[2022-11-02] MEDS: ISOSORBIDE MONONITRATE 30 MG TAB.ER.24H PO (10:23)
[2022-11-02] MEDS: lisinopriL 10 MG TABLET PO (10:23)
[2022-11-02] MEDS: METOPROLOL TARTRATE 25 MG TABLET PO (10:23)
[2022-11-02] MEDS: PANTOPRAZOLE 40 MG TABLET PO (10:23)
--- NOTE | 2022-11-02 10:42 | PM.DS ---
DS: Admitting Diagnosis Discharge Date November 02, 2022 Admitting Diagnosis No syncope DS: Discharge Diagnosis Discharge Diagnosis (1) Syncope: Code(s): R55 - Syncope and collapse Status: Acute Assessment and Plan: 2/2 hypotension adjust bp meds (2) Hyponatremia: Code(s): E87.1 - Hypo-osmolality and hyponatremia Status: Acute DS: Summary Hospital Course Hospital Course: 77-year-old admitted for near syncope. Was noted to have orthostatic hypotension. He had been doing with this at home for the last week or 2. Adjusted lisinopril to once daily instead of b.i.d.. Blood pressure is much improved, feeling much better. He can follow-up with Cardiology and his primary care doctor on discharge. Time Spent with Patient Time attestation: Total time spent providing and/or coordinating discharge services: Exam Narrative: GENERAL: Well-appearing, well-nourished, and in no acute distress. HEAD: Normocephalic, atraumatic. EYES: PERRLA and EOMI. ENT: Nares clear, no rhinorrhea or epistaxis. Mucous membranes moist. Oropharynx without tonsillar hypertrophy exudate or other lesions. NECK: Supple. No adenopathy or masses. CHEST: No respiratory distress. Clear to auscultation. No wheezes rales or rhonchi. HEART: Irregularly irregular. No murmur heard. Normal peripheral pulses. ABDOMEN: Soft, nontender, nondistended, normal active bowel sounds. MSK: Right upper extremity: Decreased range of motion due to pain. Mild tenderness to the posterior right shoulder. Neurovascular intact distally. Left upper extremity: Benign. No other area of tenderness or difficulty with range of motion throughout the musculoskeletal exam. Presents in c-collar. No midline spinal tenderness. SKIN: Warm, dry, no rash. NEURO: Alert and oriented x4. No focal deficits. Cranial nerves II through XII intact. 5 out of 5 strength and sensation in the upper and lower extremities. Speech intact. PSYCH: Normal mood and affect. DS: Data Data Completed and Pending Labs on day of discharge: Labs from last 24 hours 11/01/22 01:18 Urine Color Yellow Urine Appearance Clear Urine pH 6.0 Ur Specific [place] 1.026 Urine Protein Negative Urine Glucose (UA) Negative Urine Ketones Negative Ur Blood (Man) Negative Urine Nitrate Negative Urine Bilirubin Negative Urine Urobilinogen 0.2 Leukocyte Esterase Rfl Negative Discharge Plan Discharge Attending physician on discharge: Lenny Ball Discharging Clinician: Lenny Ball Patient Disposition: Home, Self-Care Activity: as tolerated Diet: as tolerated Patient Instructions: Antibiotic Form Stand Alone Forms: General Discharge Information Follow-up/Referrals: Lesia,Pedrito Gross PA [Primary Care Provider] - Discharge Medications: Continued pantoprazole 40 mg Tablet,Delayed Release (Dr/Ec) 40 mg PO DAILY isosorbide mononitrate 30 mg Tablet Extended Release 24 Hr 30 mg PO DAILY levothyroxine 50 mcg Tablet 50 mcg PO DAILY nitroglycerin [Nitrostat] 0.4 mg Tablet, Sublingual 0.4 mg sublingual Q5MIN PRN (Reason: Chest Pain) Adult Aspirin 81 mg Tablet 81 mg PO HS rosuvastatin 10 mg Tablet 10 mg PO QPM metoprolol tartrate 25 mg Tablet 25 mg PO BID mesalamine 400 mg Capsule,Delayed Release(Dr/Ec) 800 mg PO TID ascorbic acid (vitamin C) 1,000 mg Tablet 1,000 mg PO DAILY milk thistle 140 mg Capsule 140 mg PO DAILY amoxicillin 875 mg tablet 875 mg PO Q12H Rx Instructions: last day is 11/06/22 coQ10 (ubiquinol) 200 mg Capsule 200 mg PO DAILY cholecalciferol (vitamin D3) 1,250 mcg (50,000 unit) Tablet 50,000 mcg PO WEEKLY Rx Instructions: on sundays magnesium citrate 100 mg Tablet 200 mg PO DAILY turmeric root extract 500 mg Tablet 1,000 mg PO BID Changed lisinopril 10 mg Tablet 10 mg PO DAILY Qty: 30
== END 2022-11-02 11:40 | disposition home or self-care (01) | DRG 312 ==
LOC: ANHED 11-01 04:06 → ANHIMU 11-01 04:30 → ANH2MED 11-02 10:42 → ANHIMU 11-03 11:08
PROVIDERS: Admitting Provider Internal Medicine; Emergency Provider Physician Assistant; PCP Physician Assistant; Visit Provider Chiropractor
DX: I95.1 Orthostatic hypotension (principal); E87.1 Hypo-osmolality and hyponatremia; I10 Essential (primary) hypertension; I65.21 Occlusion and stenosis of right carotid artery; E03.9 Hypothyroidism, unspecified; E78.5 Hyperlipidemia, unspecified; Z96.642 Presence of left artificial hip joint; Z79.82 Long term (current) use of aspirin
CPT/HCPCS: 36415; 70450; 70496; 70498; 71046; 72125; 73030; 73502; 80048; 80053; 80307; 81003; 85025; 93005; 96360; 99285; A9270; J7030; Q9967

== ENCOUNTER 2022-12-31 01:02 | Day surgery (SDC) | payer MEDICARE, OTHER, SELFPAY ==
[2022-12-30 15:00] VITALS: BMI 26.1
[2022-12-31 08:37] VITALS: BMI 26.6
[2022-12-31 08:38] VITALS: BP 169/75; PULSE 57; RESP 18; TEMP 36.3; O2SAT 97
--- NOTE | 2022-12-31 09:51 | WPDCARDPROC ---
Cardiac Cath Procedure Note Date of procedure:: 12/31/22 Performing physician:: Lenny Rhodes MD Indication:: Episode of syncope Questionable evidence of paroxysmal atrial fib Brief clinical history:: This is a 77-year-old man with mild coronary artery disease being managed medically. He recently had an episode of syncope in October of this year. This is been unexplained. A event monitor was reported as showing evidence of atrial fibrillation which is in question. For further evaluation of this a LINQ implantable loop recorder has been recommended and is scheduled for this morning Procedure Procedure performed:: Implantation of Med[employer]onic LINQ loop recorder Sedation/Medication given:: No sedation Access site:: Left anterior chest wall Estimated blood loss:: Minimal Procedure note:: Patient was brought to the cardiac cardiac catheterization technician preop holding area where the left anterior chest wall was prepped and draped in the usual fashion. A peng was made on the chest with the sterile marker in the 4th intercostal space at the midclavicular line. Anesthesia was provided with 1% lidocaine infiltrated locally. Following this the insertion kit for the LINQ device was brought onto the field the stab wound was made using the supplied for puncture tool. Following this the Medtronic LINQ device was inserted inferior to the puncture wound in standard fashion without any difficulty. Manual pressure is being held for cutaneous hemostasis the will then be addressed with bio glue and a Band-Aid. Procedure was well tolerated and uncomplicated Findings:: Implanted device is a Medtronic LINQ 2 loop recorder model LNQ22. Serial number [id number]. Conclusion:: Successful uncomplicated implantation of Medtronic LINQ 2 loop recorder Lenny Rhodes MD [facility]
[2022-12-31 10:07] VITALS: BP 164/88; PULSE 60; RESP 18; O2SAT 98
== END 2022-12-31 10:28 | disposition home or self-care (01) ==
PROVIDERS: PCP Physician Assistant; Visit Provider Specialist
PROC: (CPT 33285; principal; 2022-12-31 09:00)
DX: R55 Syncope and collapse (principal); I10 Essential (primary) hypertension; I25.118 Atherosclerotic heart disease of native coronary artery with other forms of angina pectoris; I49.9 Cardiac arrhythmia, unspecified; I65.23 Occlusion and stenosis of bilateral carotid arteries; E78.00 Pure hypercholesterolemia, unspecified; M47.896 Other spondylosis, lumbar region; E03.9 Hypothyroidism, unspecified; Z87.891 Personal history of nicotine dependence; Z80.9 Family history of malignant neoplasm, unspecified; Z82.49 Family history of ischemic heart disease and other diseases of the circulatory system; Z79.51 Long term (current) use of inhaled steroids; Z79.82 Long term (current) use of aspirin
CPT/HCPCS: 33285; C1764